=== PATIENT | female | born 1980 | race Caucasian/White ===

== ENCOUNTER → 2020-02-07 | Outpatient (CLI) | payer OTHER ==
--- NOTE | 2020-02-07 12:53 | Diagnostic Imaging Report ---
PROCEDURE: US Non-ob pelvis comp/trans. TECHNIQUE: Multiple realtime grayscale images were obtained of the pelvis in various projections endovaginally. Transabdominal imaging was also performed. INDICATION: Pelvic pain. FINDINGS: The uterus is anteverted measuring 7.9 x 4.4 x 4.4 cm. Endometrium is 5 mm in thickness. No uterine mass is detected. Right ovary measures 1.9 x 1.3 x 2.9 cm and the left ovary measures 2.2 x 1.7 x 1.8 cm. Ovaries contain small follicles. There is a probable hemorrhagic cyst of the left ovary approximately 15 mm in size. No internal vascularity is seen. Both ovaries show normal vascularity. No adnexal mass or free fluid is detected. IMPRESSION: 1. Probable hemorrhagic cyst of the left ovary. The study is otherwise unremarkable. Follow-up in six to eight weeks could be performed to confirm stability of the left ovarian lesion. Dictated by: Dictated on workstation # [id number]
== END ==
LOC: RAD 09:45
PROVIDERS: ATTEND Nurse Practitioner Family
DX: R10.2 Pelvic and perineal pain (principal)
CPT/HCPCS: 76830; 76856